=== PATIENT | female | born 1950 | race Caucasian/White ===

== ENCOUNTER 2017-12-04 14:11 | Observation (INO) | payer OTHER ==
[~2017-12-04] VITALS: Ht 156.2 cm; Wt 93.5 kg
[~2017-12-04 14:11] MED LIST: FENOFIBRATE145 M1 PO; HYDROCODON-ACE1 EAC7 PO; LISINOPRIL10 MG PO; LORAZEPAM0.5 MG PO; NEXIUM40 MG PO; NIACIN PO
[2017-12-04 15:59] LABS: HEMATOCRIT 40.9 % (36.0-46.0); HEMOGLOBIN 13.8 G/DL (11.9-15.5); MCH 29.1 PG (29.0-34.0); MCHC 33.7 G/DL (30.0-36.0); MCV 86.1 FL (83-99); PLATELET COUNT 255 K/uL (156-360); RBC DIS.WIDTH-CV 12.6 % (11.8-14.6); RBC DIS.WIDTH-SD 39.6 % (39-53); RED BLOOD COUNT 4.75 M/uL (3.80-5.20)
[2017-12-04 16:07] LABS: CHLORIDE 104 mEq/L (99-109); POTASSIUM 4.1 mEq/L (3.7-5.4); SODIUM 139 mEq/L (136-147)
[2017-12-04 16:09] LABS: GLUCOSE 118 mg/dL (70-99); TOTAL PROTEIN 7.4 g/dL (6.4-8.3)
[2017-12-04 16:11] LABS: TOTAL BILIRUBIN 0.3 mg/dL (0.0-1.0)
[2017-12-04 16:13] LABS: ALKALINE PHOSPHATASE 87 IU/L (3-129); CREATININE 0.8 mg/dL (0.6-1.3); GFR ESTIMATE (CALCULATED) > 59 mL/min/
[2017-12-04 16:14] LABS: AST (GOT) 23 IU/L (2-34); UREA NITROGEN (BUN) 16 mg/dL (9-23)
[2017-12-04 16:16] LABS: ALT (GPT) 31 IU/L (3-49)
[2017-12-04 16:21] LABS: TROP-I INTERPRETATION NEGATIVE; TROPONIN-I < 0.01 ng/mL (0.0-0.30)
[2017-12-04] MEDS ORDERED: BENGAY GREASELE57 GM TP (17:27)
[2017-12-04] MEDS ORDERED: ZESTRIL40 MG PO (17:27)
[2017-12-04] MEDS ORDERED: FLONASE16 G1 BOTH NARES (17:28)
[2017-12-04] MEDS ORDERED: NORVASC10 MG PO (17:28)
[2017-12-04] MEDS ORDERED: MICROZIDE12.5 M1 PO (17:28)
[2017-12-04] MEDS ORDERED: TURMERIC500 M2 PO (17:29)
[2017-12-04] MEDS ORDERED: VENTOLIN HFA18 GM IH (17:29)
[2017-12-04] MEDS ORDERED: PULMICORT FLE180 MCG IH (17:29)
[2017-12-04] MEDS ORDERED: OSTEO BI-FLEX1 EAC3 PO (17:30)
[2017-12-04] MEDS ORDERED: PRESERVISION T1 EACH PO (17:30)
[2017-12-04 19:59] VITALS: BP 126/67
[2017-12-04 22:07] LABS: TROP-I INTERPRETATION NEGATIVE; TROPONIN-I < 0.01 ng/mL (0.0-0.30)
[2017-12-05 00:17] VITALS: BP 103/52
[2017-12-05 03:09] LABS: TROP-I INTERPRETATION NEGATIVE; TROPONIN-I 0.01 ng/mL (0.0-0.30)
[2017-12-05 03:28] LABS: HDL CHOLESTEROL 32 MG/DL (Desirable>=50); NON-HDL CHOLESTEROL 170 mg/dL (Desirable<160); TOTAL CHOLESTEROL 202 mg/dL (Desirable<200); TRIGLYCERIDES 508 MG/DL (Normal: <150)
[2017-12-05 04:07] VITALS: BP 99/51
[2017-12-05 09:00] VITALS: BP 97/55
[2017-12-05 10:22] LABS: HEMOGLOBIN A1c (GLYCOHEMOGLOB) 6.6 % (Below 5.7)
[2017-12-05 11:06] VITALS: BP 112/54
[2017-12-05] MEDS ORDERED: AMLODIPINE BESYL5 MG PO (15:03)
[2017-12-05] MEDS ORDERED: LIPITOR20 MG PO (15:07)
[2017-12-05] MEDS ORDERED: NITROGLYCERIN0.4 MG SL (15:41)
== END 2017-12-05 15:47 | disposition home or self-care (01) ==
LOC: EME 14:11 → EDOF 17:04 → 4SOUTH 17:04 → ENRESERV 17:11 → 4SOUTH 19:41 → ENPENDDIS 12-05 15:12 → 4SOUTH 12-05 15:47
PROVIDERS: Emergency Medicine; Student in an Organized Health Care Education/Training Program
DX: R07.9 Chest pain, unspecified (principal); R94.31 Abnormal electrocardiogram [ECG] [EKG]; I10 Essential (primary) hypertension; J45.20 Mild intermittent asthma, uncomplicated; K21.9 Gastro-esophageal reflux disease without esophagitis; E66.01 Morbid (severe) obesity due to excess calories; Z68.39 Body mass index [BMI] 39.0-39.9, adult; Z79.82 Long term (current) use of aspirin; Z91.041 Radiographic dye allergy status; Z90.710 Acquired absence of both cervix and uterus; Z82.49 Family history of ischemic heart disease and other diseases of the circulatory system; Z87.891 Personal history of nicotine dependence
CPT/HCPCS: 71045; 80053; 80061; 83036; 83880; 84484; 85027; 93005; 94640; 94640 76; 99202; 99281; 99285; G0378; J1644; J7030

== ENCOUNTER 2017-12-24 11:08 | Day surgery (SDC) | payer OTHER ==
[~2017-12-24] VITALS: Ht 156.2 cm; Wt 90.7 kg
[~2017-12-24 11:08] MED LIST changes: +AMLODIPINE BESYL5 MG PO; +BENGAY GREASELE57 GM TP; +FLONASE16 G1 BOTH NARES; +LIPITOR20 MG PO; +LISINOPRIL40 MG PO; +MICROZIDE12.5 M1 PO; +NITROGLYCERIN0.4 MG SL; +NORVASC10 MG PO; +OSTEO BI-FLEX1 EAC3 PO; +PRESERVISION T1 EACH PO; +PULMICORT FLE180 MCG IH; +TURMERIC500 M2 PO; +VENTOLIN HFA18 GM IH; +ZESTRIL40 MG PO
== END 2017-12-24 18:58 | disposition home or self-care (01) ==
LOC: CATH 11:08
DX: I25.10 Atherosclerotic heart disease of native coronary artery without angina pectoris (principal); I25.82 Chronic total occlusion of coronary artery; I10 Essential (primary) hypertension; R73.09 Other abnormal glucose; E78.5 Hyperlipidemia, unspecified; J45.909 Unspecified asthma, uncomplicated
CPT/HCPCS: C1769; C1887; J1200; J1644; J2250; J2765; J2930; J3010